=== PATIENT | male | born 1995 | race Caucasian/White ===

== ENCOUNTER 2020-01-08 22:33 | Emergency (ER) | payer BC, SELFPAY ==
[2020-01-08 22:42] VITALS: BP 150/95; PULSE 112; RESP 18; TEMP 36.8; O2SAT 100; BMI 17.8
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
[2020-01-08 23:57] VITALS: BP 148/88; PULSE 92; RESP 18; TEMP 36.8; O2SAT 99
== END 2020-01-08 23:59 | disposition home or self-care (01) ==
PROVIDERS: Emergency Provider Emergency Medicine
DX: S01.111A Laceration without foreign body of right eyelid and periocular area, initial encounter (principal); S01.81XA Laceration without foreign body of other part of head, initial encounter; X99.0XXA Assault by sharp glass, initial encounter; Y92.89 Other specified places as the place of occurrence of the external cause; Z23 Encounter for immunization
CPT/HCPCS: 12013; 70150; 90471; 90714; 99282

== ENCOUNTER → 2021-08-01 10:16 | Outpatient (CLI) | payer BC, SELFPAY | PROVIDERS: PCP Family Medicine; Visit Provider Nurse Practitioner | DX: Z20.822 Contact with and (suspected) exposure to COVID-19 (principal) | CPT/HCPCS: C9803; U0003; U0005 ==

== ENCOUNTER 2021-12-19 10:32 | Emergency (ER) | payer BC, SELFPAY ==
[2021-12-19 10:35] VITALS: BP 122/86; PULSE 69; RESP 19; TEMP 37.1; O2SAT 100; BMI 16.4
[2021-12-19 10:59] LABS: Bordetella Pertussis Not Detected (NotDetected); Chlamydophila Pneumoniae, PCR Not Detected (NotDetected); Coronavirus 19, PCR Not Detected (NotDetected); Influenza A, PCR Not Detected (NotDetected); Influenza AH1, 2009 Not Detected (NotDetected); Influenza AH1, PCR Not Detected (NotDetected); Influenza AH3,PCR Not Detected (NotDetected); Influenza B, PCR Not Detected (NotDetected); Mycoplasma Pneumoniae, PCR Not Detected (NotDetected); Parainfluenza 1, PCR Not Detected (NotDetected); Parainfluenza 2, PCR Not Detected (NotDetected); Parainfluenza 3, PCR Not Detected (NotDetected); Parainfluenza 4, PCR Not Detected (NotDetected); Respiratory Syncytial Virus Not Detected (NotDetected)
[2021-12-19 11:01] LABS: Adenovirus,PCR Not Detected (NotDetected); Coronavirus 229E Not Detected (NotDetected); Coronavirus NL63 Not Detected (NotDetected); Coronavirus OC43 Not Detected (NotDetected); Coronovirus HKU1,PCR Not Detected (NotDetected); Human Metapneumovirus Not Detected (NotDetected)
[2021-12-19 11:08] LABS: Strep Scrn Group A (Rapid) Negative (Negative)
--- NOTE | 2021-12-19 11:17 | HMH.EDUTC ---
[facility] [place] Clinical Impression: URI (upper respiratory infection) Qualifiers: URI type: unspecified URI Qualified Code(s): J06.9 - Acute upper respiratory infection, unspecified Disposition: Home, Self-Care Condition on Discharge: Good Instructions: Sinusitis, DI for Sinusitis, Sore Throat Additional Instructions: *Monitor Temp, Over the counter Motrin or Tylenol as directed/as needed Tylenol every 4 hours and Motrin every 6 hours (as long as your family doctor has told you that you can take it) for fever or pain. and straight to ER if unable to lower temp less than 101.0 after medication given *Warm salt water gargles may help to soothe the throat *Throat Lozenges *Warm fluids like tea with honey may help to soothe the throat *Sleep elevated *Humidifier/Vaporizer You was tested for Upper Respiratory Panel today, your results should be back in the next 24-48 hours and be available on the [facility] My Health Portal Your throat swab was sent for culture. Those results are typically sent to your primary care. Be sure to follow up in 2-3 days with your family doctor/primary care physician if no improvement so they can review those result and treat if necessary. If you don?t have a primary care doctor, I recommend you get one but in the mean time, you will have to return to a walk in clinic Follow up IMMEDIATELY for new or worsening symptoms or no Noticeable improvement over the next 48-72 hours. 911 for difficulty breathing or swallowing Prescriptions: methylPREDNISolone [Medrol 4mg tab] 4 mg PO DIRECTED #21 tab Transmission Status: Pending to [facility] Azithromycin [Z-Nick 250mg Tab] 250 mg PO DIRECTED #6 tab Transmission Status: Pending to [facility] Referrals: Cm Neves MD [Primary Care Provider] - As needed Time of Disposition: 11:32 Medical Decision Making - Fabien Inquiry Pt receiving controlled substance: No Fabien was queried for this patient: No Vital Signs: 12/19/21 10:35 Temperature 98.8 F Temperature Source Oral Pulse Rate [Right Brachial] 69 Respiratory Rate 19 Blood Pressure [Right Arm] 122/86 Blood Pressure Mean [Right Arm] 98 Blood Pressure Source [Right Arm] Automatic Cuff Blood Pressure Position [Right Arm] Sitting 02 Sat by Pulse Oximetry 100 Oxygen Delivery Method Room Air - Lab Data Lab results reviewed: Yes: I reviewed the patient's lab results. Lab Results 12/19/21 10:54: Group A Strep Rapid Negative Orders (Tests/Meds): ORDERS Category Date Time Status Full Resp Panel w/COVID ([facility]) Routine Lab 12/19/21 10:54 Received Strep Screen Confirmation Stat Micro 12/19/21 10:54 Received [facility] UTC HPI - General Stated complaint: cough, congestion, sore throat Time Seen by Provider: 12/19/21 11:17 Mode of Arrival: Ambulatory Source of Information: Patient Limitations: No Limitations Description of Symptoms (Recalled from Triage Doc. by RN): PATIENT C/O SORE THROAT AND CONGESTION HEENT Symptoms (Recalled from RN notes): Yes Resp Symptoms (Recalled from RN notes): No Skin Symptoms (Recalled from RN notes): No MS Symptoms (Recalled from RN notes): No Functional Status (Recalled from RN notes): WNL - History of Present Illness Provider Complaint: Patient state that he slept outside for several days while at training and then woke up with sore scratchy throat hoarsness sinus congestion/pressure and cough State that when he got back to his unit they told him he had to come and get tested for flu, strep and COVID to see if he had anything that may be contagious so he came in - Related Data Home Medications Medication Instructions Recorded Confirmed terbinafine HCL [Terbinafine HCl] 250 mg PO DAILY 12/19/21 12/19/21 Previous Rx's Medication Instructions Recorded Azithromycin [Z-Nick 250mg Tab] 250 mg PO DIRECTED #6 tab 12/19/21 methylPREDNISolone [Medrol 4mg 4 mg PO DIRECTED #21 tab 12/19/21 tab] Allergies
[2021-12-19 11:30] VITALS: BP 122/86; PULSE 69; RESP 19; TEMP 37.1; O2SAT 100
[2021-12-19 18:18] LABS: Rhinovirus/Enterovirus Detected (NotDetected)
== END 2021-12-19 11:34 | disposition home or self-care (01) ==
PROVIDERS: Emergency Provider Nurse Practitioner; PCP Family Medicine
DX: J06.9 Acute upper respiratory infection, unspecified (principal); Z72.0 Tobacco use
CPT/HCPCS: 87430; 87581; 87632; 87798; 99212; C9803; G0463; U0003; U0005

== ENCOUNTER → 2022-04-23 06:00 | Outpatient (CLI) | payer BC, SELFPAY | PROVIDERS: Visit Provider Nurse Practitioner Family | DX: B35.1 Tinea unguium (principal) ==